=== PATIENT | male | born 1995 | race Caucasian/White ===

== ENCOUNTER 2025-08-16 21:02 | Inpatient (IN) ==
[2025-08-16] MEDS: ALBUT/IPRATROP 3MG/0.5MG NEB 3 ML VIAL NEB STA ×3 (21:25→23:55)
[2025-08-16] MEDS: MAGNESIUM SULFATE / D5W 1 GM/100 ML BAG IV STA (21:30)
--- NOTE | 2025-08-16 21:57 | Emergency Department Note ---
Impression & Plan Rhinovirus infection ED Provider Note CHIEF COMPLAINT: Shortness of breath HISTORY OF PRESENTING ILLNESS: Patient is a pleasant, 30-year-old male who arrives to the emergency department with his significant other and child for evaluation of shortness of breath. He reports symptoms began last night. He states previous episode last year, where he had seasonal allergies, that developed into shortness of breath, with wheezing and respiratory difficulties. He states that this episode appears to be worse. He reports no past medical history of asthma. He reports he did have a recent sinus infection. He denies chest pain, abdominal pain, nausea or vomiting. He has tachycardia, with increased respiratory rate, and obvious respiratory distress. REVIEW OF SYSTEMS: See HPI for pertinent positives and pertinent negatives. ALLERGIES: See below MEDICATIONS: See below PAST MEDICAL HISTORY: See below PHYSICAL EXAM: VITALS: Vitals are noted on the nurse's note and reviewed by myself. Vital signs stable. GENERAL: 30-year-old male, in no acute distress, nondiaphoretic, well-developed well-nourished. SKIN: The skin was without rashes, erythema, edema, or bruising. HEAD: Normocephalic atraumatic. NOSE: Patent, turbinates without inflammation or discharge. No sinus tenderness. MOUTH: Mucous membranes moist. No tonsillar hypertrophy. Pharynx without erythema or exudate. Uvula midline. Airway patent. Tongue does not deviate. NECK: Supple without nuchal rigidity. No lymphadenopathy. No JVD. HEART: Tachycardia with regular rhythm, without murmurs gallops or rubs. LUNGS: Diminished throughout, with expiratory wheezing. MUSCULOSKELETAL: No muscle atrophy, erythema, or edema noted. Normal gait. Strength 5/5 throughout. NEURO: Patient was alert and oriented to person place and time. No focal neurological deficits. DIFFERENTIAL DIAGNOSIS: Reactive airway disease, pneumonia, pneumothorax, COPD, CHF, infections, cardiac ischemia, pulmonary embolism, musculoskeletal, gastrointestinal, as well as other pathologies. ED COURSE AND MEDICAL DECISION MAKING: HISTORY FROM INDEPENDENT HISTORIAN: Significant other at bedside serving as secondary historian. MEDICATIONS GIVEN: DuoNeb treatment x 4, magnesium 1 g IV, methylprednisolone 80 mg IV MONITOR: Continuous cardiac cath lab radiology technologist: Order was placed for continuous cardiac cath lab radiology technologist. Patient was placed on the cardiac cath lab radiology technologist and continuous pulse ox. Patient was noted to be in normal sinus rhythm at an initial rate of 137 bpm per my interpretation. EKG: EKG was interpreted by myself as sinus tachycardia at a rate of 134 bpm, no ST elevation or depression. No previous for comparison. INTERPRETATION OF LABS: I interpreted the labs with full lab results as below in the lab section of this note. Pertinent lab results discussed in the MDM section below. INTERPRETATION OF IMAGING: Imaging studies were interpreted by myself and read by radiology as per the imaging section of this note. MDM SUMMARY: The patient is a pleasant, 30-year-old male who arrives to the emergency department for evaluation of the above-stated complaint. Patient arrived during time of high acuity and high-volume. Nursing staff placed the patient in room, when they noticed the patient was in distress. Saline lock was established, lab work was obtained. IV steroids, magnesium, and DuoNeb treatment were immediately provided. Upon my evaluation the patient had just received medication. Patient had diminished lung sounds, with expiratory wheezing diffusely. He was persistently tachycardic, with tachypnea. Lab work was obtained which shows leukocytosis 20.71, no anemia. Coags within normal limits. CMP is unremarkable. Magnesium 1.8. Upper upper respiratory viral panel positive for rhinovirus. Despite repeat DuoNeb treatments, the patient did not have significant improvement in symptoms. He then began to require supplemental oxygen via nasal cannula. I spoke with the patient at bedside, he was agreeable to admission. The patient was admitted to the [facility] hospitalist group, Dr. Bustos. Please refer to his documentation for further patient workup and care. DIAGNOSIS: Rhinovirus infection The chart was completed utilizing [employer] Speech voice recognition software. Grammatical errors, random word insertions, pronoun errors, and incomplete sentences are an occasional consequence of this system due to software limitations, ambient noise, and hardware issues. Any formal questions or concerns about the content, text, or information contained within the body of this dictation should be directly addressed to the provider for clarification. Past Med/Surg History Problem List (Updated 08/21/25 @ 02:34 by RENE Queen) Rhinovirus infection (Acute) Seasonal allergies Tobacco use Asthma exacerbation Medical History No significant medical problems Social History Smoking Status: Current every day smoker Tobacco Type: Cigarettes Cigarettes Per Day: 1 pack/day; Hx Alcohol Use: Yes Alcohol type: hard liquor Hx Substance Use: No Preferred Language: Wolof Communication Ability: Effective Hoop Maker Helper Machine Required: No Beliefs That Will Affect Care: None Current Living Situation: Significant Other Current Living Situation Comment: [place] Feels Safe at Home: Yes Assistive Devices: None Allergies Allergies Allergy/AdvReac Type Severity Reaction Status Date / Time No Known Allergies Allergy Unverified 08/16/25 23:50 Home Meds Previous Rx's Medication Instructions Recorded albuterol sulfate 90 mcg/actuation 1 inh inhalation Q6H PRN shortness 08/20/25 aerosol inhaler of breath or wheezing #6.7 grams budesonide-formoterol HFA 160 2 inh inhalation BID #10.2 grams 08/20/25 mcg-4.5 mcg/actuation aerosol inhaler (Symbicort) montelukast 10 mg tablet 10 mg PO DAILY #30 tabs 08/20/25 (Singulair) prednisone 20 mg tablet 20 mg PO DAILY 5 days #5 tabs 08/20/25 Results & Data (ED) Vital Signs Vital Signs - 24 hr 08/16/25 21:09 08/16/25 21:30 Temperature 36.6 C Temperature Source Temporal Artery Scan Pulse Rate 137 H Pulse Rhythm Regular Pulse Strength Normal Respiratory Rate 24 Respiratory Effort / Characteristics Spontaneous Pursed Lip Respiratory Depth Shallow Respiratory Pattern Regular Blood Pressure 139/88 Blood Pressure Mean 105 Blood Pressure Position Sitting Pulse Oximetry 94 92 Oxygen Delivery Method Room Air Room Air Sepsis Recent Fever Within 48 Hours No Sepsis New/Unexplained Change in Mental Status No Sepsis Action Taken by Nursing No Action Required Laboratory Data 08/19/25 06:29 08/19/25 06:29 Lab Results 08/16/25 08/16/25 Range/Units 21:26 21:30 WBC 20.71 H (4.8-10.8) K/ul RBC 5.15 (4.70-6.10) M/uL Hgb 16.9 (14.0-18.0) g/dl Hct 47.4 (42.0-52.0) % MCV 92.0 (80.0-100.0) fL MCH 32.8 (25.0-34.0) pg MCHC 35.7 (32.0-36.0) g/dL RDW Std Deviation 43.0 (36.4-46.3) fL RDW Coeff of Taya 12.7 (11.5-14.5) % Plt Count 282 (130-400) K/uL MPV 9.9 (9.4-12.4) fL Immature Gran % (Auto) 0.4 % Neut % (Auto) 87.0 % Lymph % (Auto) 4.4 % [place] % (Auto) 7.6 % Eos % (Auto) 0.3 % Baso % (Auto) 0.3 % Neut # (Auto) 18.02 H (1.40-6.50) K/uL Lymph # (Auto) 0.91 L (1.20-3.40) K/uL [place] # (Auto) 1.58 H (0.11-0.59) K/uL Eos # (Auto) 0.06 (0.00-0.50) K/uL Baso # (Auto) 0.06 (0.00-0.20) K/uL Immature Gran # (Auto) 0.08 (0.01-0.20) K/uL PT 10.7 (9.0-12.0) Seconds INR 1.0 (0.9-1.1) APTT 30 (21-31) Seconds PTT Ratio 1.1 Sodium 133 L (136-145) mmol/L Potassium 3.8 (3.5-5.1) mmol/L Chloride 100 (98-107) mmol/L Carbon Dioxide 23 (21-32) mmol/L Anion Gap 10 (3-11) BUN 10 (6-23) mg/dl Creatinine 1.02 (0.6-1.4) mg/dl Est Cr Clr Drug Dosing 104.9 ml/min eGFR 100.77 BUN/Creatinine Ratio 9.8 L (10-20) Glucose 126 H (70-99(Fasting)) mg/dl Calcium 10.1 (8.6-10.3) mg/dl Magnesium 1.8 (1.7-2.4) mg/dl Total Bilirubin 1.9 H (0.2-1.0) mg/dl AST 30 (13-39) U/L ALT 53 H (7-52) U/L Alkaline Phosphatase 102 (34-104) U/L Total Protein 8.2 (6.0-8.3) gm/dl Albumin 4.7 (3.4-5.0) gm/dl Globulin 3.5 (2.5-4.0) gm/dl Albumin/Globulin Ratio 1.3 (0.9-2) Adenovirus (PCR) Not Detected (NotDetected) B. pertussis DNA (PCR) Not Detected (NotDetected) B.parapertussis DNA PCR Not Detected (NotDetected) C. pneumoniae DNA (PCR) Not Detected (NotDetected) Coronavirus OC43 (PCR) Not Detected (NotDetected) Coronavirus HKU1 (PCR) Not Detected (NotDetected) Coronavirus 229E (PCR) Not Detected (NotDetected) SARS-CoV-2 (PCR) Not Detected (NotDetected) Coronavirus NL63 (PCR) Not Detected (NotDetected) Human Metapneumovir PCR Not Detected (NotDetected) Influenza Type A (PCR) Not Detected (NotDetected) Influenza Type B (PCR) Not Detected (NotDetected) M. pneumoniae (PCR) Not Detected (NotDetected) Parainfluenza 1 (PCR) Not Detected (NotDetected) Parainfluenza 2 (PCR) Not Detected (NotDetected) Parainfluenza 3 (PCR) Not Detected (NotDetected) Parainfluenza 4 (PCR) Not Detected (NotDetected) RSV (PCR) Not Detected (NotDetected) Entero/Rhino (PCR) DETECTED A (NotDetected) Administered Medications Discontinued Medications Albuterol (Albut/Ipratrop 3mg/0.5mg Neb 3 Ml Vial) 3 ml NEB NOW STA; Protocol Stop: 08/16/25 21:22 Last Admin: 08/16/25 21:25 Dose: 3 ml Documented By: LCD Albuterol (Albut/Ipratrop 3mg/0.5mg Neb 3 Ml Vial) 3 ml NEB NOW STA; Protocol Stop: 08/16/25 22:16 Last Admin: 08/16/25 22:22 Dose: 3 ml Documented By: LCD Albuterol (Albut/Ipratrop 3mg/0.5mg Neb 3 Ml Vial) 3 ml NEB NOW STA; Protocol Stop: 08/16/25 23:15 Last Admin: 08/16/25 23:55 Dose: 3 ml Documented By: DANUTA Azithromycin (Azithromycin 250 Mg Tab) 500 mg PO NOW ONE Stop: 08/17/25 01:28 Last Admin: 08/17/25 01:43 Dose: 500 mg Documented By: DANUTA Azithromycin (Azithromycin 250 Mg Tab) 250 mg PO HS [facility] Stop: 08/22/25 20:59 Last Admin: 08/19/25 20:17 Dose: 250 mg Documented By: Admin: 08/18/25 20:26 Dose: 250 mg Documented By: Admin: 08/17/25 20:29 Dose: 250 mg Documented By: BA Benzonatate (Benzonatate 100 Mg Capsule) 100 mg PO NOW ONE Stop: 08/17/25 01:32 Last Admin: 08/17/25 01:43 Dose: 100 mg Documented By: DANUTA Benzonatate (Benzonatate 100 Mg Capsule) 100 mg PO TID [facility] Stop: 09/16/25 08:59 Last Admin: 08/20/25 07:57 Dose: 100 mg Documented By: Admin: 08/19/25 20:15 Dose: 100 mg Documented By: Admin: 08/19/25 15:19 Dose: 100 mg Documented By: Admin: 08/19/25 09:14 Dose: 100 mg Documented By: Admin: 08/18/25 20:26 Dose: 100 mg Documented By: Admin: 08/18/25 14:27 Dose: 100 mg Documented By: Admin: 08/18/25 07:58 Dose: 100 mg Documented By: Admin: 08/17/25 20:29 Dose: 100 mg Documented By: Admin: 08/17/25 14:16 Dose: 100 mg Documented By: Admin: 08/17/25 07:22 Dose: 100 mg Documented By: WANDA Calcium Carbonate (Calcium Carbonate 500 Mg Chewable Tab) 500 mg PO TID PRN PRN Reason: Indigestion Stop: 09/16/25 12:00 Last Admin: 08/18/25 23:28 Dose: 500 mg Documented By: Admin: 08/17/25 12:44 Dose: 500 mg Documented By: WANDA Enoxaparin Sodium (Enoxaparin Inj 40 Mg/0.4 Ml Syr) 40 mg SQ Q24H [facility] Stop: 09/16/25 07:59 Last Admin: 08/20/25 07:59 Dose: Not Given Documented By: Admin: 08/19/25 09:13 Dose: Not Given Documented By: Admin: 08/18/25 07:53 Dose: Not Given Documented By: Admin: 08/17/25 07:21 Dose: Not Given Documented By: WANDA Fluticasone Propionate (Fluticasone Propionate Na Spr 16 Gm Btl) 2 sprays NA DAILY LELO Stop: 09/17/25 13:29 Last Admin: 08/20/25 07:58 Dose: 2 sprays Documented By: Admin: 08/19/25 09:14 Dose: 2 sprays Documented By: Admin: 08/18/25 14:27 Dose: 2 sprays Documented By: DECLAN Fluticasone/Vilanterol (Fluticasone/Vilanterol 100/25mcg 14 Puffs/Inhaler) 1 puffs INH DAILY LELO; Protocol Stop: 09/17/25 08:59 Last Admin: 08/20/25 07:58 Dose: 1 puffs Documented By: Admin: 08/19/25 09:13 Dose: 1 puffs Documented By: Admin: 08/18/25 07:57 Dose: 1 puffs Documented By: WANDA Guaifenesin/Dextromethorphan (Guaifenesin/Dextrom Syrup 100mg/10mg 5ml Udc) 5 ml PO Q6H PRN PRN Reason: Cough Stop: 09/16/25 03:42 Last Admin: 08/18/25 07:58 Dose: 5 ml Documented By: WANDA Hydrocodone Bit/Homatropine Methylb (Hydrocodone/Homatropine Syrup 5mg/1.5mg 5ml Udp) 5 ml PO TID PRN PRN Reason: Cough Stop: 09/01/25 08:53 Last Admin: 08/19/25 20:15 Dose: 5 ml Documented By: Admin: 08/19/25 09:14 Dose: 5 ml Documented By: Admin: 08/18/25 23:28 Dose: 5 ml Documented By: Admin: 08/18/25 16:13 Dose: 5 ml Documented By: DECLAN Magnesium Sulfate/Dextrose (Magnesium Sulfate / D5w) 1 gm in 100 mls @ 100 mls/hr IV NOW STA Stop: 08/16/25 22:21 Last Infusion: 08/16/25 23:51 Dose: Infused Documented By: Admin: 08/16/25 21:30 Dose: 100 mls/hr Documented By: KYLEIGH Methylprednisolone 40 mg/ (Syringe) 0.64 mls @ 1.5 mls/min IV TID LELO Stop: 09/16/25 08:59 Last Admin: 08/17/25 20:28 Dose: 1.5 mls/min Documented By: Admin: 08/17/25 14:12 Dose: 1.5 mls/min Documented By: Admin: 08/17/25 07:22 Dose: 1.5 mls/min Documented By: WANDA Ipratropium [place] (Ipratropium [place] Nasal [place] 0.03% 30 Ml) 2 sprays KRISTIAN BID LELO Stop: 09/17/25 20:59 Last Admin: 08/20/25 07:58 Dose: 2 sprays Documented By: Admin: 08/19/25 20:16 Dose: 2 sprays Documented By: Admin: 08/19/25 09:14 Dose: 2 sprays Documented By: Admin: 08/18/25 20:31 Dose: 2 sprays Documented By: BA Levalbuterol HCl (Levalbuterol 1.25 Mg/3 Ml Neb) 1.25 mg NEB QIDR LELO Stop: 09/16/25 06:59 Last Admin: 08/20/25 10:08 Dose: 1.25 mg Documented By: Admin: 08/20/25 07:10 Dose: 1.25 mg Documented By: [id number] Admin: 08/19/25 19:51 Dose: 1.25 mg Documented By: Admin: 08/19/25 15:28 Dose: 1.25 mg Documented By: Admin: 08/19/25 11:25 Dose: 1.25 mg Documented By: EM(2) Admin: 08/19/25 07:08 Dose: 1.25 mg Documented By: EMNa(2) Admin: 08/18/25 19:44 Dose: 1.25 mg Documented By: Admin: 08/18/25 15:56 Dose: 1.25 mg Documented By: Admin: 08/18/25 11:29 Dose: 1.25 mg Documented By: Admin: 08/18/25 07:11 Dose: 1.25 mg Documented By: EM(2) Admin: 08/17/25 20:22 Dose: 1.25 mg Documented By: LGBill Admin: 08/17/25 15:20 Dose: 1.25 mg Documented By: [id number] Admin: 08/17/25 10:56 Dose: 1.25 mg Documented By: [id number] Admin: 08/17/25 08:35 Dose: 1.25 mg Documented By: [id number] Methylprednisolone (Methylprednisolone 125 Mg/2 Ml Vial) 80 mg IV NOW STA Stop: 08/16/25 21:22 Last Admin: 08/16/25 21:26 Dose: 80 mg Documented By: KYLEIGH Prednisone (Prednisone 20 Mg Tab) 40 mg PO DAILY LELO Stop: 09/17/25 08:59 Last Admin: 08/20/25 07:57 Dose: 40 mg Documented By: Admin: 08/19/25 09:14 Dose: 40 mg Documented By: Admin: 08/18/25 07:58 Dose: 40 mg Documented By: WANDA Discharge Plan Visit Data Chief Complaint: Shortness of Breath/Dyspnea Stated Complaint: DIFFICULTY BREATHING, SINUS INFECTION ED Provider: Corey Anderson ED Midlevel Provider: Lucia Urias Discharge Problem: Rhinovirus infection Patient Disposition: Admitted As Inpatient Condition: Fair Discharge Instructions Interventions: ED Discharge Assessment Last Done: 08/17/25 03:01
[2025-08-16 22:01] LABS: Alanine Aminotransferase 53.0 U/L (7-52); Albumin Globulin Ratio 1.3 (0.9-2); Albumin Level 4.7 gm/dl (3.4-5.0); Alkaline Phosphatase 102.0 U/L (34-104); Anion Gap 10.0 (3-11); Bilirubin,Total 1.9 mg/dl (0.2-1.0); Blood Urea Nitrogen 10.0 mg/dl (6-23); Calcium 10.1 mg/dl (8.6-10.3); Carbon Dioxide 23.0 mmol/L (21-32); Chloride 100.0 mmol/L (98-107); Creatinine Clr Calc Pharmacy 104.9 ml/min; Globulin 3.5 gm/dl (2.5-4.0); Glucose 126.0 mg/dl (70-99(Fasting)); Magnesium 1.8 mg/dl (1.7-2.4); Potassium 3.8 mmol/L (3.5-5.1); Sodium 133.0 mmol/L (136-145); Total Protein 8.2 gm/dl (6.0-8.3)
--- NOTE | 2025-08-16 22:05 | XRay Report ---
Exam(s): XR CXR 1 VIEW EXAM: XR Chest, 1 View CLINICAL HISTORY: Reason for exam: Dyspnea. TECHNIQUE: Frontal view of the chest. COMPARISON: No relevant prior studies available. FINDINGS: Lungs: No consolidation. No overt edema. Pleural space: No pleural effusion. No pneumothorax. Heart: Unremarkable. No cardiomegaly. IMPRESSION: No acute cardiopulmonary abnormality. Electronically signed by: David Grijalva MD 08/16/25 22:04 PM
[2025-08-16 22:11] LABS: INR 1.0 (0.9-1.1); Partial Thromboplastin Time 30 Seconds (21-31); Prothrombin Time 10.7 Seconds (9.0-12.0)
[2025-08-16 22:18] LABS: Hematocrit (blood only) 47.4 % (42.0-52.0); Hemoglobin 16.9 g/dl (14.0-18.0); Immature Granulocytes # (auto) 0.08 K/uL (0.01-0.20); Immature Granulocytes % (auto) 0.4 %; Mean Corpuscular Hemoglobin 32.8 pg (25.0-34.0); Mean Corpuscular Volume 92.0 fL (80.0-100.0); Platelet Count 282 K/uL (130-400); RDW Standard Deviation 43.0 fL (36.4-46.3); Red Blood Count 5.15 M/uL (4.70-6.10); White Blood Count 20.71 K/ul (4.8-10.8)
[2025-08-16 22:39] LABS: Chlamydia pneumoniae PCR Not Detected (NotDetected); Coronavirus 229E PCR Not Detected (NotDetected); Coronavirus CoV-2 (COVID19)PCR Not Detected (NotDetected); Coronavirus HKU1 PCR Not Detected (NotDetected); Coronavirus NL63 PCR Not Detected (NotDetected); Coronavirus OC43PCR Not Detected (NotDetected); Human Metapneumovirus PCR Not Detected (NotDetected); Parainfluenza Virus 1 PCR Not Detected (NotDetected); Parainfluenza Virus 2 PCR Not Detected (NotDetected); Parainfluenza Virus 3 PCR Not Detected (NotDetected); Parainfluenza Virus 4 PCR Not Detected (NotDetected); Respiratory Syncytial VirusPCR Not Detected (NotDetected); Rhinovirus/Enterovirus PCR DETECTED (NotDetected)
[2025-08-17] MEDS: BENZONATATE 100 MG CAPSULE PO ONE (01:43)
[2025-08-17] MEDS: AZITHROMYCIN 250 MG TAB PO ONE (01:43)
--- NOTE | 2025-08-17 02:12 | History & Physical Report ---
Date of Service August 17, 2025 Assessment & Plan (1) Asthma exacerbation: Plan: 30-year-old male with ongoing tobacco abuse and no other significant medical history presents with shortness of breath and cough. Patient says since yesterday night coughing a lot and bringing some phlegm and feeling short of breath which prompted him to come to the ER today. He is having some congestion going on for last couple of days. Has some runny nose. Denies any sore throat. Has headache. Congestion in the face. Vision is okay. No earaches. No sore throat. Denies any chest pain. With a lot of coughing had episode of nausea and vomiting. Denies abdominal pain. Normal bowel and bladder movements. Micturating okay. Patient says had similar episode last year but this time it is worse. States smokes 1 pack daily since last 15 years. Says drinks 1 bottle of rum on the weekends and states does not drink on the weekdays. Possible asthma exasperation Possible acute bronchitis Ongoing tobacco abuse Chest x-ray no acute findings Has leukocytosis. Will follow repeat labs Respiratory BioFire positive for enterorhinovirus On droplet precautions Azithromycin empirically IV Solu-Medrol 40 mg 3 times daily, Xopenex [id number] and as needed Pulmonary consult in am Close monitor Tobacco abuse Counseling Alcohol abuse Drinks only on the weekends Will monitor DVT prophylaxis Lovenox Disposition Telemetry Full code. History of Present Illness Chief Complaint: Shortness of breath and cough Primary Care Provider: NO PCP 30-year-old male with ongoing tobacco abuse and no other significant medical history presents with shortness of breath and cough. Patient says since yesterday night coughing a lot and bringing some phlegm and feeling short of breath which prompted him to come to the ER today. He is having some congestion going on for last couple of days. Has some runny nose. Denies any sore throat. Has headache. Congestion in the face. Vision is okay. No earaches. No sore throat. Denies any chest pain. With a lot of coughing had episode of nausea and vomiting. Denies abdominal pain. Normal bowel and bladder movements. Micturating okay. Patient says had similar episode last year but this time it is worse. States smokes 1 pack daily since last 15 years. Says drinks 1 bottle of rum on the weekends and states does not drink on the weekdays. Past medical history. As mentioned above. Past surgical history denies any surgeries. Social history. Smoking 1 pack of cigarettes daily for last 15 years. Drinks 1 bottle of rum on the weekends. No drinking on the weekdays. Denies any drug use. Family history. Denies any family history. Allergies Allergy/AdvReac Type Severity Reaction Status Date / Time No Known Allergies Allergy Unverified 08/16/25 23:50 Home Medications Medication Instructions Recorded Confirmed Type No Known Home Medications 08/16/25 08/16/25 History Past Med/Surg History Problem List (Updated 08/17/25 @ 02:17 by Tomasz Bustos MD) Asthma exacerbation Medical History No significant medical problems Social History Smoking Status: Current every day smoker Tobacco Type: Cigarettes Cigarettes Per Day: 1 pack/day; Hx Alcohol Use: Yes Alcohol type: hard liquor Hx Substance Use: No Preferred Language: [place] Leonean Communication Ability: Effective Appliquer Required: No Beliefs That Will Affect Care: None Current Living Situation: Significant Other Current Living Situation Comment: [place] Other Information That Helps Us Care for You: No Feels Safe at Home: Yes Safety Concerns: Feels Safe At This Time Assistive Devices: Glasses Review of Systems Review of Systems: All systems reviewed & are unremarkable except as noted in HPI & below Physical Exam Physical Exam: General- Not in acute distress Head- atraumatic Eyes- PERRL. ENT- oropharynx clear Neck- supple, no JVD. Lungs- clear to auscultation b/l wheezing present Heart- regular rhythm;tachycardia no murmur, no gallop. Abdomen- normal bowel sounds, soft, nontender, no distension Extremities- no pretibial edema, no erythema seen Neuro- alert, oriented PERRL, no facial palsy; no dysarthria; moves extremities Results & Data Results & Data Vital Signs (Past 12 Hours) Vital Signs Temp Pulse Pulse Resp BP BP Pulse Ox 08/17/25 01:17 109 H 08/17/25 00:00 111 H 18 126/94 95 08/16/25 22:30 117 H 18 126/94 95 08/16/25 21:30 92 08/16/25 21:22 127 H 08/16/25 21:09 36.6 C 137 H 24 139/88 94 O2 Del Method 08/17/25 01:17 08/17/25 00:00 Room Air 08/16/25 22:30 Room Air 08/16/25 21:30 Room Air 08/16/25 21:22 08/16/25 21:09 Room Air Diagnostic Findings Laboratory Results WBC 20.71 K/ul (4.8-10.8) H 08/16/25 21: RBC 5.15 M/uL (4.70-6.10) 08/16/25 21: Hgb 16.9 g/dl (14.0-18.0) 08/16/25 21: Hct 47.4 % (42.0-52.0) 08/16/25 21: MCV 92.0 fL (80.0-100.0) 08/16/25 21: MCH 32.8 pg (25.0-34.0) 08/16/25 21: MCHC 35.7 g/dL (32.0-36.0) 08/16/25 21: RDW Std Deviation 43.0 fL (36.4-46.3) 08/16/25 21: RDW Coeff of Taya 12.7 % (11.5-14.5) 08/16/25 21: Plt Count 282 K/uL (130-400) 08/16/25 21: MPV 9.9 fL (9.4-12.4) 08/16/25 21: Immature Gran % (Auto) 0.4 % 08/16/25: Neut % (Auto) 87.0 % 08/16/25 21: Lymph % (Auto) 4.4 % 08/16/25: [place] % (Auto) 7.6 % 08/16/25: Eos % (Auto) 0.3 % 08/16/25 21: Baso % (Auto) 0.3 % 08/16/25: Neut # (Auto) 18.02 K/uL (1.40-6.50) H 08/16/25 21: Lymph # (Auto) 0.91 K/uL (1.20-3.40) L 08/16/25 21: [place] # (Auto) 1.58 K/uL (0.11-0.59) H 08/16/25 21: Eos # (Auto) 0.06 K/uL (0.00-0.50) 08/16/25 21: Baso # (Auto) 0.06 K/uL (0.00-0.20) 08/16/25: Immature Gran # (Auto) 0.08 K/uL (0.01-0.20) 08/16/25 21: PT 10.7 Seconds (9.0-12.0) 08/16/25: INR 1.0 (0.9-1.1) 08/16/25: APTT 30 Seconds (21-31) 08/16/25: PTT Ratio 1.1 08/16/25 21: Sodium 133 mmol/L (136-145) L 08/16/25 21: Potassium 3.8 mmol/L (3.5-5.1) 08/16/25: Chloride 100 mmol/L (98-107) 08/16/25 21: Carbon Dioxide 23 mmol/L (21-32) 08/16/25: Anion Gap 10 (3-11) 08/16/25: BUN 10 mg/dl (6-23) 08/16/25: Creatinine 1.02 mg/dl (0.6-1.4) 08/16/25: Est Cr Clr Drug Dosing 104.9 ml/min 08/16/25 21: eGFR 100.77 08/16/25 21: BUN/Creatinine Ratio 9.8 (10-20) L 08/16/25: Glucose 126 mg/dl (70-99(Fasting)) H 08/16/25: Calcium 10.1 mg/dl (8.6-10.3) 08/16/25: Magnesium 1.8 mg/dl (1.7-2.4) 08/16/25: Total Bilirubin 1.9 mg/dl (0.2-1.0) H 08/16/25 21: AST 30 U/L (13-39) 08/16/25 21: ALT 53 U/L (7-52) H 08/16/25 21: Alkaline Phosphatase 102 U/L (34-104) 08/16/25: Total Protein 8.2 gm/dl (6.0-8.3) 08/16/25: Albumin 4.7 gm/dl (3.4-5.0) 08/16/25: Globulin 3.5 gm/dl (2.5-4.0) 08/16/25: Albumin/Globulin Ratio 1.3 (0.9-2) 08/16/25 21: Adenovirus (PCR) Not Detected (NotDetected) 08/16/25 21:30 B. pertussis DNA (PCR) Not Detected (NotDetected) 08/16/25 21: B.parapertussis DNA PCR Not Detected (NotDetected) 08/16/25 21:30 C. pneumoniae DNA (PCR) Not Detected (NotDetected) 08/16/25 21: Coronavirus OC43 (PCR) Not Detected (NotDetected) 08/16/25 21:30 Coronavirus HKU1 (PCR) Not Detected (NotDetected) 08/16/25 21: Coronavirus 229E (PCR) Not Detected (NotDetected) 08/16/25 21: SARS-CoV-2 (PCR) Not Detected (NotDetected) 08/16/25 21:30 Coronavirus NL63 (PCR) Not Detected (NotDetected) 08/16/25 21: Human Metapneumovir PCR Not Detected (NotDetected) 08/16/25 21:30 Influenza Type A (PCR) Not Detected (NotDetected) 08/16/25 21:30 Influenza Type B (PCR) Not Detected (NotDetected) 08/16/25 21:30 M. pneumoniae (PCR) Not Detected (NotDetected) 08/16/25 21: Parainfluenza 1 (PCR) Not Detected (NotDetected) 08/16/25 21:30 Parainfluenza 2 (PCR) Not Detected (NotDetected) 08/16/25 21:30 Parainfluenza 3 (PCR) Not Detected (NotDetected) 08/16/25 21:30 Parainfluenza 4 (PCR) Not Detected (NotDetected) 08/16/25 21:30 RSV (PCR) Not Detected (NotDetected) 08/16/25 21:30 Entero/Rhino (PCR) DETECTED (NotDetected) A 08/16/25 21:30 Impressions Chest X-Ray 08/16/25 21:21 Exam(s): XR CXR 1 VIEW EXAM: XR Chest, 1 View CLINICAL HISTORY: Reason for exam: Dyspnea. TECHNIQUE: Frontal view of the chest. COMPARISON: No relevant prior studies available. FINDINGS: Lungs: No consolidation. No overt edema. Pleural space: No pleural effusion. No pneumothorax. Heart: Unremarkable. No cardiomegaly. IMPRESSION: No acute cardiopulmonary abnormality. Electronically signed by: David Grijalva MD 08/16/25 22:04 PM ECG Additional Comments: ECG. Sinus tachycardia rate of 134. Possible left atrial enlargement. QTc 421 Code Status & VTE Plan VTE Prophylaxis Plan VTE Prophylaxis will be ordered: Yes
[2025-08-17] MEDS ORDERED: ALBUT/IPRATROP 3MG/0.5MG NEB 3 ML VIAL NEB PRN (03:43)
[2025-08-17] MEDS ORDERED: ACETAMINOPHEN 325 MG TAB PO PRN (03:43)
[2025-08-17] MEDS ORDERED: POLYETHYLENE (MIRALAX) 17 GM PACK PO PRN (03:43)
[2025-08-17] MEDS ORDERED: LEVALBUTEROL 1.25 MG/3 ML NEB NEB PRN (05:41)
[2025-08-17] MEDS ORDERED: ALBUT/IPRATROP 3MG/0.5MG NEB 3 ML VIAL NEB SCH (07:00)
[2025-08-17 07:07] LABS: Hematocrit (blood only) 44.9 % (42.0-52.0); Hemoglobin 15.6 g/dl (14.0-18.0); Mean Corpuscular Hemoglobin 32.6 pg (25.0-34.0); Mean Corpuscular Volume 93.9 fL (80.0-100.0); Platelet Count 258 K/uL (130-400); RDW Standard Deviation 44.1 fL (36.4-46.3); Red Blood Count 4.78 M/uL (4.70-6.10); White Blood Count 15.34 K/ul (4.8-10.8)
[2025-08-17] MEDS: ENOXAPARIN INJ 40 MG/0.4 ML SYR SQ SCH (07:21)
[2025-08-17] MEDS: BENZONATATE 100 MG CAPSULE PO SCH (07:22)
[2025-08-17 07:27] LABS: Anion Gap 10.0 (3-11); Blood Urea Nitrogen 12.0 mg/dl (6-23); Calcium 9.8 mg/dl (8.6-10.3); Carbon Dioxide 26.0 mmol/L (21-32); Chloride 100.0 mmol/L (98-107); Creatinine Clr Calc Pharmacy 96.4 ml/min; Glucose 175.0 mg/dl (70-99(Fasting)); Magnesium 2.4 mg/dl (1.7-2.4); Potassium 3.9 mmol/L (3.5-5.1); Sodium 136.0 mmol/L (136-145)
[2025-08-17 07:32] LABS: Immature Granulocytes # (auto) 0.07 K/uL (0.01-0.20); Immature Granulocytes % (auto) 0.5 %; RBC Morphology Unremarkable
[2025-08-17] MEDS: LEVALBUTEROL 1.25 MG/3 ML NEB NEB SCH (08:35)
[2025-08-17] MEDS: CALCIUM CARBONATE 500 MG CHEWABLE TAB PO PRN (12:44)
--- NOTE | 2025-08-17 15:39 | Electrocardiogram Report ---
Test Reason : Blood Pressure : */* mmHG Vent. Rate : 134 BPM Atrial Rate : 134 BPM P-R Int : 152 ms QRS Dur : 90 ms QT Int : 282 ms P-R-T Axes : 78 87 58 degrees QTcB Int : 421 ms Poor data quality, interpretation may be adversely affected Sinus tachycardia Possible Left atrial enlargement Borderline ECG No previous ECGs available Confirmed by Nabor Zapata ([id number]) on 08/17/2025 3:39:10 PM Referred By: REFERRED SELF Confirmed By: Nabor Zapata
--- NOTE | 2025-08-17 18:01 | Pulmonary Consultation ---
Date of Consultation August 17, 2025 Assessment & Plan (1) Asthma exacerbation: (2) Tobacco use: (3) Seasonal allergies: (4) Rhinovirus infection: Plan Patient appears to be an asthma exacerbation. No personal history of asthma however. No new exposures, was exposed to his child who had a viral illness recently. No significant eosinophilia on his admission CBC. Has never had PFTs or other investigations performed. I agree with steroids, can continue IV steroids today. Can consider transitioning to p.o. prednisone tomorrow. Continue bronchodilators. I will obtain an IgE level, will order RAST allergy panel, will get alpha-1 antitrypsin. Will initiate montelukast. Upon discharge the patient will need ICS/LABA according to Lola guidelines. He will need to have his sinus congestion and seasonal allergies well-controlled with antihistamines, montelukast and nasal sprays. He will need to follow-up with pulmonary and have full PFTs performed in the outpatient setting once his acute illness has resolved. Thank you for this consult. I will follow along with you. History of Present Illness Reason for Consultation: Asthma exacerbation Requesting Physician: Steven Gaitan MD Attending Physician: Steven Gaitan MD History of Present Illness Patient is a 30-year-old male with a past medical history of tobacco use (cigarettes, 1 pack/day), history of seasonal allergies and 1 episode of bronchitis/walking pneumonia 1 year ago. The patient has known allergies to cats and at times will get severe seasonal allergies especially if he is mowing grass. The patient presented to the emergency department on 08/16/2025 with shortness of breath. The patient started having some congestion and facial pressure on Sunday night, on Sunday he developed shortness of breath that progressed significantly. He tried multiple [id number] allergy and cold medications without relief. Did not have any home inhaler so was not able to use these. On presentation to the emergency department the patient was found to be in severe bronchospasm. He was started on bronchodilators and steroids with significant improvement. Viral PCR was positive for rhinovirus. CBC was significant for leukocytosis, chemistry was significant for mild hyponatremia. Imaging of the chest with x-ray showed clear lungs without evidence of an acute cardiopulmonary process. Pulmonary has been consulted for asthma exacerbation. When I examined the patient today he is resting on nasal cannula. He says that his breathing is improved however not returned to baseline. It still feels as though it is hard to take a deep breath and he is having an intermittent cough and continues to have sinus congestion. The patient has 3 children, he says that his youngest child was sick recently and he believes that he got this illness from them. He denies any history of as thma including childhood asthma or exercise-induced asthma. He does smoke, about 1 pack/day. No vaping or marijuana use. He does not have any inhalers at home. Has not been formally tested for allergies. He has not had any change in his cigarette brand or usage. No new pets in the home. Social history: Tobacco: 1 pack/day of cigarettes, has smoked for many years. Illicit substance use: Denies Living situation: Lives with his girlfriend of 12 years, they have 3 children, they have lived in the same home for about 2-1/2 years, is an older home and they have been remodeling it removing carpet and jaison and there is some dust and mold in the home. Pets: Has 3 dogs, 2 cats, he is allergic to cats but has not noticed too many symptoms recently with these. Work: Works as a electric truck operator. Family history: No family history of asthma. Allergies Allergy/AdvReac Type Severity Reaction Status Date / Time No Known Allergies Allergy Unverified 08/16/25 23:50 Home Medications Medication Instructions Recorded Confirmed Type No Known Home Medications 08/16/25 08/16/25 History Patient History Medical History No significant medical problems Social History Smoking Status: Current every day smoker Tobacco Type: Cigarettes Cigarettes Per Day: 1 pack/day; Hx Alcohol Use: Yes Alcohol type: hard liquor Hx Substance Use: No Preferred Language: Persian Communication Ability: Effective Net Lead Architect Required: No Beliefs That Will Affect Care: None Current Living Situation: Significant Other Current Living Situation Comment: [place] Other Information That Helps Us Care for You: No Feels Safe at Home: Yes Safety Concerns: Feels Safe At This Time Assistive Devices: None Review of Systems Review of Systems: Negative except as in HPI. Physical Exam Physical Exam: Physical examination: General: Well-appearing, well-nourished and not in acute distress. HEENT: Normocephalic, atraumatic. Extraocular movements intact. Sclera are nonicteric. No JVD appreciated. Sinus congestion. Skin: Warm and dry. No rashes appreciated. No jaundice appreciated. Cardiovascular: Heart is a regular rate and rhythm, no murmurs appreciated on my exam. No significant lower extremity edema. Lungs: On nasal cannula, mildly tachypneic, nonproductive cough, wheezing appreciated. Musculoskeletal: Normal muscle mass and tone. No gross joint deformity abnormalities. No effusions appreciated. Neurologic: Awake and alert, oriented. CN II through XII are grossly intact. Speech is fluent. Nonfocal exam. Psychiatric: Appropriate cooperative during my exam. Results & Data Results & Data Vital Signs (Past 12 Hours) Vital Signs Temp Pulse Pulse Resp BP Pulse Ox O2 Del Method 08/17/25 15:20 89 19 93 Nasal Cannula 08/17/25 15:13 36.7 C 111 H 19 125/71 93 Nasal Cannula 08/17/25 14:00 106 H 08/17/25 11:40 36.4 C L 118 H 22 130/74 94 Nasal Cannula 08/17/25 10:56 101 H 18 98 Nasal Cannula 08/17/25 08:37 111 H 19 97 Nasal Cannula 08/17/25 07:56 36.5 C 95 H 22 123/75 94 Nasal Cannula 08/17/25 07:50 94 H 08/17/25 07:50 Nasal Cannula O2 Flow Rate 08/17/25 15:20 2 08/17/25 15:13 2 08/17/25 14:00 08/17/25 11:40 4 08/17/25 10:56 3.5 08/17/25 08:37 3.5 08/17/25 07:56 4 08/17/25 07:50 08/17/25 07:50 4 Laboratory Results No significant peripheral eosinophilia on admission CBC. Diagnostic Findings Chest x-ray was reviewed, clear lung arenas. No consolidations, pneumothorax or evidence of hyperinflation. PG Care Time/CCT Total # of Minutes Spent Total Time Spent with Patient: Total time spent is greater than 50% in coordination of care (as documented) at patient's floor/unit and/or counseling patient: Coding Level of Care Code 20986 IN/OBS CONSULT LVL 3,45M Diagnoses Asthma exacerbation J45.901 Tobacco use Z72.0 Seasonal allergies J30.2 Rhinovirus infection B34.8
[2025-08-17] MEDS: AZITHROMYCIN 250 MG TAB PO SCH (20:29)
[2025-08-18] MEDS: FLUTICASONE/VILANTEROL 100/25MCG 14 PUFFS/INHALER INH SCH (07:57)
[2025-08-18] MEDS: predniSONE 20 MG TAB PO SCH (07:58)
[2025-08-18 08:04] LABS: Hematocrit (blood only) 46.2 % (42.0-52.0); Hemoglobin 16.4 g/dl (14.0-18.0); Mean Corpuscular Hemoglobin 34.7 pg (25.0-34.0); Mean Corpuscular Volume 97.7 fL (80.0-100.0); Platelet Count 268 K/uL (130-400); RDW Standard Deviation 46.1 fL (36.4-46.3); Red Blood Count 4.73 M/uL (4.70-6.10); White Blood Count 29.21 K/ul (4.8-10.8)
[2025-08-18 08:51] LABS: Anion Gap 12.0 (3-11); Blood Urea Nitrogen 18.0 mg/dl (6-23); Calcium 9.8 mg/dl (8.6-10.3); Carbon Dioxide 22.0 mmol/L (21-32); Chloride 102.0 mmol/L (98-107); Creatinine Clr Calc Pharmacy 103.9 ml/min; Glucose 166.0 mg/dl (70-99(Fasting)); Magnesium 2.4 mg/dl (1.7-2.4); Potassium 3.8 mmol/L (3.5-5.1); Sodium 136.0 mmol/L (136-145)
--- NOTE | 2025-08-18 08:57 | Hospitalist Progress Note ---
Date of Service August 18, 2025 Assessment & Plan (1) Asthma exacerbation: Plan: 30-year-old male with ongoing tobacco abuse and no other significant medical history presents with shortness of breath and cough. Patient says since yesterday night coughing a lot and bringing some phlegm and feeling short of breath which prompted him to come to the ER today. He is having some congestion going on for last couple of days. Has some runny nose. Denies any sore throat. Has headache. Congestion in the face. Vision is okay. No earaches. No sore throat. Denies any chest pain. With a lot of coughing had episode of nausea and vomiting. Denies abdominal pain. Normal bowel and bladder movements. Micturating okay. Patient says had similar episode last year but this time it is worse. States smokes 1 pack daily since last 15 years. Says drinks 1 bottle of rum on the weekends and states does not drink on the weekdays. Acute hypoxic resp. failure Possible asthma exasperation Possible acute bronchitis Ongoing tobacco abuse Chest x-ray no acute findings Has leukocytosis. Will follow repeat labs Respiratory BioFire positive for rhinovirus On droplet precautions Azithromycin empirically IV Solu-Medrol 40 mg 3 times daily, Xopenex [id number] and as needed Pulmonary consult in am Close monitor Per pulm. - Patient appears to be an asthma exacerbation. No personal history of asthma however. No significant eosinophilia on his admission CBC. Has never had PFTs or other investigations performed. transition to p.o. prednisone 40 mg. Still wheezing significantly. Continue bronchodilators and ICS. I will obtain an IgE level, will order RAST allergy panel, will get alpha-1 antitrypsin. Will initiate montelukast. Having a lot of congestion, likely related to seasonal allergies and rhinovirus. I will initiate Flonase and ipratropium nasal sprays. Upon discharge the patient will need ICS/LABA according to Lola guidelines. He will need to have his sinus congestion and seasonal allergies well-controlled with antihistamines, montelukast and nasal sprays. He will need to follow-up with pulmonary and have full PFTs performed in the outpatient setting once his acute illness has resolved. Tobacco abuse Counseling Alcohol abuse Drinks only on the weekends Will monitor DVT prophylaxis - Lovenox Disposition- Telemetry Full code. Admission and Anticipated Discharge Date Admission Date: August 17, 2025 Subjective Pt seen in follow up of acute hypox. resp. failure, poss. asthma , + Rhinovirus Sitting up in bed in NAD, continues to have a cough , could not sleep much because of coughing no fever, chills, chest pain on suppl. O2 Pt's mother present at the bedside Pulm. consulted and following Review of Systems Review of Systems: All systems reviewed & are unremarkable except as noted in Subjective Physical Exam Physical Exam: General- WD/WN M Not in acute distress Head- atraumatic Eyes- PERRL. Neck- supple, no JVD. Lungs- + b/l wheezing present Heart- regular rhythm;tachycardia no murmur Abdomen- normal bowel sounds, soft, nontender, no distension Extremities- no pretibial edema, no erythema seen Neuro- alert, oriented PERRL, no facial palsy; speech fluent, answers appropriately, moves extremities Results & Data Results & Data Vital Signs (Past 12 Hours) Vital Signs Temp Pulse Pulse Resp BP Pulse Ox Pulse Ox 08/18/25 08:00 80 08/18/25 08:00 08/18/25 08:00 36.5 C 124 H 20 121/73 90 08/18/25 07:13 101 H 16 94 08/18/25 03:43 94 08/18/25 03:15 36.5 C 93 H 22 119/78 94 08/17/25 23:02 36.6 C 100 H 22 129/74 93 O2 Del Method O2 Del Method O2 Flow Rate O2 Flow Rate 08/18/25 08:00 08/18/25 08:00 Nasal Cannula 2 08/18/25 08:00 Nasal Cannula 08/18/25 07:13 Nasal Cannula 2 08/18/25 03:43 Nasal Cannula 2 08/18/25 03:15 Nasal Cannula 2 08/17/25 23:02 Nasal Cannula 2 Laboratory Results 08/18/25 Range/Units 07:18 WBC 29.21 H (4.8-10.8) K/ul RBC 4.73 (4.70-6.10) M/uL Hgb 16.4 (14.0-18.0) g/dl Hct 46.2 (42.0-52.0) % MCV 97.7 (80.0-100.0) fL MCH 34.7 H (25.0-34.0) pg MCHC 35.5 (32.0-36.0) g/dL RDW Std Deviation 46.1 (36.4-46.3) fL RDW Coeff of Taya 12.9 (11.5-14.5) % Plt Count 268 (130-400) K/uL MPV 9.9 (9.4-12.4) fL Sodium 136 (136-145) mmol/L Potassium 3.8 (3.5-5.1) mmol/L Chloride 102 (98-107) mmol/L Carbon Dioxide 22 (21-32) mmol/L Anion Gap 12 H (3-11) BUN 18 (6-23) mg/dl Creatinine 1.03 (0.6-1.4) mg/dl Est Cr Clr Drug Dosing 103.9 ml/min eGFR 99.60 BUN/Creatinine Ratio 17.5 (10-20) Glucose 166 H (70-99(Fasting)) mg/dl Calcium 9.8 (8.6-10.3) mg/dl Phosphorus 2.7 (2.5-4.9) mg/dl Magnesium 2.4 (1.7-2.4) mg/dl [id number] Pending Alpha-1-AT Phenotype Pending A. tenuis Allergen IgE Pending A. tenuis ASM Class Pending A.fumigatus Allerg IgE Pending A. fumigatus ASM Class Pending C. herbarum Allergn IgE Pending C. herbarum ASM Class Pending D. farinae Allrgen IgE Pending D. farinae ASM Class Pending D. pteronyssinus IgE Pending D. pteronyssinus ASM Cl Pending P. notatum Allerg IgE Pending P, notatum ASM Class Pending [place] IgE Ab Pending [place] ASM Class Pending [place] IgE Ab Pending [place] ASM Class Pending Elm Tree Allergen IgE Pending Elm Tree ASM Class Pending Maple ([place]) IgE Pending Maple Tree ASM Class Pending [place] Tree IgE Ab Pending [place] ASM Class Pending [place] Tree IgE Ab Pending [place] ASM Class Pending [place] Tree Allergen Pending [place] Tree ASM Class Pending [place] Tree IgE Ab Pending [place] ASM Class Pending [place] ASM Clss Pending White [place] Ag IgE Ad Pending Rid[place] IgE Ab Pending Ridgely ASM Class Pending [place] Grass IgE Ab Pending [place] Grass ASM Class Pending [place] Grass IgE Ab Pending [place] Grass ASM Class Pending Common Ragweed IgE Ab Pending Comm Ragweed ASM Class Pending Mugwort ASM Class Pending Mugwort Allergen Pending Rough Pigweed Allrg IgE Pending Rough Pigweed ASM Class Pending Sheep [place] IgE Ab Pending Sheep [place] ASM Class Pending Cat Dander Allergen Pending Cat Dander ASM Class Pending Dog Dander IgE Allergen Pending Dog Dander ASM Class Pending Mouse Urine IgE Ab Pending Mouse Ur Prot ASM Class Pending Cockroach Allergen IgE Pending Cochroach ASM Class Pending IgE Pending Medications Administered Current Inpatient Medications Acetaminophen (Acetaminophen 325 Mg Tab) 650 mg PO Q4H PRN PRN Reason: Pain or Fever Stop: 09/16/25 03:42 Azithromycin (Azithromycin 250 Mg Tab) 250 mg PO HS LELO Stop: 08/22/25 20:59 Last Admin: 08/17/25 20:29 Dose: 250 mg Benzonatate (Benzonatate 100 Mg Capsule) 100 mg PO TID LELO Stop: 09/16/25 08:59 Last Admin: 08/18/25 14:27 Dose: 100 mg Calcium Carbonate (Calcium Carbonate 500 Mg Chewable Tab) 500 mg PO TID PRN PRN Reason: Indigestion Stop: 09/16/25 12:00 Last Admin: 08/17/25 12:44 Dose: 500 mg Enoxaparin Sodium (Enoxaparin Inj 40 Mg/0.4 Ml Syr) 40 mg SQ Q24H LELO Stop: 09/16/25 07:59 Last Admin: 08/18/25 07:53 Dose: Not Given Fluticasone Propionate (Fluticasone Propionate Na Spr 16 Gm Btl) 2 sprays NA DAILY LELO Stop: 09/17/25 13:29 Last Admin: 08/18/25 14:27 Dose: 2 sprays Fluticasone/Vilanterol (Fluticasone/Vilanterol 100/25mcg 14 Puffs/Inhaler) 1 puffs INH DAILY LELO; Protocol Stop: 09/17/25 08:59 Last Admin: 08/18/25 07:57 Dose: 1 puffs Guaifenesin/Dextromethorphan (Guaifenesin/Dextrom Syrup 100mg/10mg 5ml Udc) 5 ml PO Q6H PRN PRN Reason: Cough Stop: 09/16/25 03:42 Last Admin: 08/18/25 07:58 Dose: 5 ml Hydrocodone Bit/Homatropine Methylb (Hydrocodone/Homatropine Syrup 5mg/1.5mg 5ml Udp) 5 ml PO TID PRN PRN Reason: Cough Stop: 09/01/25 08:53 Last Admin: 08/18/25 16:13 Dose: 5 ml Ipratropium [place] (Ipratropium [place] Nasal [place] 0.03% 30 Ml) 2 sprays KRISTIAN BID [facility] Stop: 09/17/25 20:59 Levalbuterol HCl (Levalbuterol 1.25 Mg/3 Ml Neb) 1.25 mg NEB QIDR [facility] Stop: 09/16/25 06:59 Last Admin: 08/18/25 15:56 Dose: 1.25 mg Levalbuterol HCl (Levalbuterol 1.25 Mg/3 Ml Neb) 1.25 mg NEB Q4H PRN PRN Reason: Shortness Of Breath Or Wheezing Stop: 09/16/25 05:40 Polyethylene Glycol (Polyethylene (Miralax) 17 Gm Pack) 17 gm PO DAILY PRN PRN Reason: Constipation Stop: 09/16/25 03:42 Prednisone (Prednisone 20 Mg Tab) 40 mg PO DAILY [facility] Stop: 09/17/25 08:59 Last Admin: 08/18/25 07:58 Dose: 40 mg
--- NOTE | 2025-08-18 13:19 | Pulmonology Progress Note ---
Date of Service August 18, 2025 Assessment & Plan (1) Asthma exacerbation: (2) Tobacco use: (3) Seasonal allergies: (4) Rhinovirus infection: Plan Patient appears to be an asthma exacerbation. No personal history of asthma however. No new exposures, was exposed to his child who had a viral illness recently. No significant eosinophilia on his admission CBC. Has never had PFTs or other investigations performed. Patient has been transition to p.o. prednisone 40 mg. Will continue this. Still wheezing significantly. Continue bronchodilators and ICS. I will obtain an IgE level, will order RAST allergy panel, will get alpha-1 antitrypsin. Will initiate montelukast. Having a lot of congestion, likely related to seasonal allergies and rhinovirus. I will initiate Flonase and ipratropium nasal sprays. Upon discharge the patient will need ICS/LABA according to Lola guidelines. He will need to have his sinus congestion and seasonal allergies well-controlled with antihistamines, montelukast and nasal sprays. He will need to follow-up with pulmonary and have full PFTs performed in the outpatient setting once his acute illness has resolved. Thank you for this consult. I will follow along with you. Admission and Anticipated Discharge Date Admission Date: August 17, 2025 Subjective Patient is slightly improved today. He is on room air. Saturation is about 94%. Still having a lot of coughing and nasal congestion. Still wheezing. Still having a hard time getting a good breath of air. Review of Systems Review of Systems: Negative except as in HPI. Physical Exam Physical Exam: Physical examination: General: Well-appearing, well-nourished and not in acute distress. HEENT: Normocephalic, atraumatic. Extraocular movements intact. Sclera are nonicteric. No JVD appreciated. Sinus congestion. Skin: Warm and dry. No rashes appreciated. No jaundice appreciated. Cardiovascular: Heart is a regular rate and rhythm, no murmurs appreciated on my exam. No significant lower extremity edema. Lungs: On nasal cannula, mildly tachypneic, nonproductive cough, wheezing appreciated. Musculoskeletal: Normal muscle mass and tone. No gross joint deformity abnormalities. No effusions appreciated. Neurologic: Awake and alert, oriented. CN II through XII are grossly intact. Speech is fluent. Nonfocal exam. Psychiatric: Appropriate cooperative during my exam. Results & Data Results & Data Vital Signs (Past 12 Hours) Vital Signs Temp Pulse Pulse Resp BP Pulse Ox Pulse Ox 08/18/25 11:31 108 H 20 93 08/18/25 11:25 36.5 C 103 H 20 133/79 93 08/18/25 08:00 80 08/18/25 08:00 08/18/25 08:00 36.5 C 124 H 20 121/73 90 08/18/25 07:13 101 H 16 94 08/18/25 03:43 94 08/18/25 03:15 36.5 C 93 H 22 119/78 94 O2 Del Method O2 Del Method O2 Flow Rate O2 Flow Rate 08/18/25 11:31 Nasal Cannula 1 08/18/25 11:25 Nasal Cannula 08/18/25 08:00 08/18/25 08:00 Nasal Cannula 2 08/18/25 08:00 Nasal Cannula 08/18/25 07:13 Nasal Cannula 2 08/18/25 03:43 Nasal Cannula 2 08/18/25 03:15 Nasal Cannula 2 PG Care Time/CCT Total # of Minutes Spent Total Time Spent with Patient: Total time spent is greater than 50% in coordination of care (as documented) at patient's floor/unit and/or counseling patient: Coding Level of Care Code 23059 SUB INP/OBS CARE 2/35MIN Diagnoses Asthma exacerbation J45.901 Tobacco use Z72.0 Seasonal allergies J30.2 Rhinovirus infection B34.8
[2025-08-18] MEDS: FLUTICASONE PROPIONATE NA SPR 16 GM BTL SCH (14:27)
[2025-08-18] MEDS: IPRATROPIUM BROMIDE NASAL SPRAY 0.03% 30 ML NAE SCH (20:31)
[2025-08-19 07:27] LABS: Anion Gap 5.0 (3-11); Blood Urea Nitrogen 17.0 mg/dl (6-23); Calcium 9.2 mg/dl (8.6-10.3); Carbon Dioxide 28.0 mmol/L (21-32); Chloride 105.0 mmol/L (98-107); Creatinine Clr Calc Pharmacy 121.6 ml/min; Glucose 101.0 mg/dl (70-99(Fasting)); Magnesium 2.4 mg/dl (1.7-2.4); Potassium 3.5 mmol/L (3.5-5.1); Sodium 138.0 mmol/L (136-145)
--- NOTE | 2025-08-19 07:58 | Pulmonology Progress Note ---
Date of Service August 19, 2025 Assessment & Plan (1) Asthma exacerbation: (2) Tobacco use: (3) Seasonal allergies: (4) Rhinovirus infection: Plan Patient appears to be an asthma exacerbation. No personal history of asthma however. No new exposures, was exposed to his child who had a viral illness recently. No significant eosinophilia on his admission CBC. Has never had PFTs or other investigations performed. Patient has been transition to p.o. prednisone 40 mg. Will continue this. Still wheezing significantly. Continue bronchodilators and ICS. I will obtain an IgE level, will order RAST allergy panel, will get alpha-1 antitrypsin. Will initiate montelukast. Having a lot of congestion, likely related to seasonal allergies and rhinovirus. I will initiate Flonase and ipratropium nasal sprays. Upon discharge the patient will need ICS/LABA according to Lola guidelines. Please start Symbicort 160 with 2 puffs twice daily. Patient was instructed that he can also use this additionally throughout the day as his rescue inhaler for up to 12 puffs a day. He should rinse his mouth after use. He will need to have his sinus congestion and seasonal allergies well-controlled with antihistamines, montelukast and nasal sprays. He will need to follow-up with pulmonary and have full PFTs performed in the outpatient setting once his acute illness has resolved. Should see me in clinic in 2 to 3 weeks. Patient should not smoke or vape when he returns home. Avoid triggers to possible allergens and dust such as home remodeling and working on his new jaison in his house. Thank you for this consult. I will sign off and follow-up in the outpatient setting. Admission and Anticipated Discharge Date Admission Date: August 17, 2025 Subjective Patient is doing little bit better today when I examined him. He is still wheezing but air movement is definitely improved. Still coughing, congestion is slightly improved with nasal sprays. Eager to go home however he does live an hour from this hospital in 30 minutes from the nearest emergency department. Review of Systems Review of Systems: Negative except as in HPI. Physical Exam Physical Exam: Physical examination: General: Well-appearing, well-nourished and not in acute distress. HEENT: Normocephalic, atraumatic. Extraocular movements intact. Sclera are nonicteric. No JVD appreciated. Sinus congestion. Skin: Warm and dry. No rashes appreciated. No jaundice appreciated. Cardiovascular: Heart is a regular rate and rhythm, no murmurs appreciated on my exam. No significant lower extremity edema. Lungs: Wheezing bilaterally, aeration is improved however, nontachypneic, on room air. Musculoskeletal: Normal muscle mass and tone. No gross joint deformity abnormalities. No effusions appreciated. Neurologic: Awake and alert, oriented. CN II through XII are grossly intact. Speech is fluent. Nonfocal exam. Psychiatric: Appropriate cooperative during my exam. Results & Data Results & Data Vital Signs (Past 12 Hours) Vital Signs Temp Pulse Resp BP Pulse Ox Pulse Ox O2 Del Method 08/19/25 07:35 36.6 C 64 18 121/72 96 Room Air 08/19/25 07:09 83 16 94 Room Air 08/19/25 03:09 36.5 C 90 20 124/87 92 Room Air 08/19/25 03:00 93 08/18/25 22:56 36.6 C 96 H 20 116/66 93 Room Air O2 Del Method 08/19/25 07:35 08/19/25 07:09 08/19/25 03:09 08/19/25 03:00 Room Air 08/18/25 22:56 PG Care Time/CCT Total # of Minutes Spent Total Time Spent with Patient: Total time spent is greater than 50% in coordination of care (as documented) at patient's floor/unit and/or counseling patient: Coding Level of Care Code 48720 SUB INP/OBS CARE 2/35MIN Diagnoses Asthma exacerbation J45.901 Tobacco use Z72.0 Seasonal allergies J30.2 Rhinovirus infection B34.8
[2025-08-19 08:02] LABS: Hematocrit (blood only) 39.7 % (42.0-52.0); Hemoglobin 14.4 g/dl (14.0-18.0); Mean Corpuscular Hemoglobin 34.6 pg (25.0-34.0); Mean Corpuscular Volume 95.4 fL (80.0-100.0); Platelet Count 246 K/uL (130-400); RDW Standard Deviation 44.8 fL (36.4-46.3); Red Blood Count 4.16 M/uL (4.70-6.10); White Blood Count 15.32 K/ul (4.8-10.8)
--- NOTE | 2025-08-19 11:01 | Hospitalist Progress Note ---
Date of Service August 19, 2025 Assessment & Plan (1) Asthma exacerbation: Plan: 30-year-old male with ongoing tobacco abuse and no other significant medical history presents with shortness of breath and cough. #Asthma exacerbation -New diagnosis -CXR clear -No O2 requirements today -Still wheezing and has dry cough Plan -Appreciate pulm input -Continue prednisone -Day 3 of azith. can stop after today -Continue nebs prn -ICS/LABA + albuterol HFA upon discharge -IgE, Allergy panel and Alpha 1 AT pending -F/u with pulm as OP -Anticipate DC home tomorrow if wheezing improves DVT prophylaxis - Lovenox Disposition- Telemetry Full code. I spent a total of 42 minutes coordinating, documenting, and providing care for this patient excluding time spent in the performance of separately billed servi shiv. This included personally reviewing all current laboratories and imaging studies, medical reconciliation, outpatient chart review and discussion with specialists Admission and Anticipated Discharge Date Admission Date: August 17, 2025 Subjective Feeling better but still with dry cough and wheezing. Physical Exam Physical Exam: Vitals and labs reviewed General: Well appearing, NAD HEENT: EOMI, PERRLA Neck: Supple Cardiac: RRR no rubs gallops or murmurs Lungs: exp wheezing. no distress otherwise clear Abd: S NT ND BS positive : no dong MSK: Full ROM. No obvious deformities Ext: No Edema cyanosis Skin: Warm, Dry Neuro: AOx3 No focal deficits. Psych: Normal Mood Results & Data Results & Data Vital Signs (Past 12 Hours) Vital Signs Temp Pulse Pulse Resp BP Pulse Ox Pulse Ox 08/19/25 10:10 71 08/19/25 08:00 08/19/25 07:35 36.6 C 64 18 121/72 96 08/19/25 07:09 83 16 94 08/19/25 03:09 36.5 C 90 20 124/87 92 08/19/25 03:00 93 O2 Del Method O2 Del Method 08/19/25 10:10 08/19/25 08:00 Room Air 08/19/25 07:35 Room Air 08/19/25 07:09 Room Air 08/19/25 03:09 Room Air 08/19/25 03:00 Room Air Laboratory Results Abnormal lab results 08/19/25 Range/Units 06:29 WBC 15.32 H D (4.8-10.8) K/ul RBC 4.16 L (4.70-6.10) M/uL Hct 39.7 L (42.0-52.0) % MCH 34.6 H (25.0-34.0) pg MCHC 36.3 H (32.0-36.0) g/dL Glucose 101 H (70-99(Fasting)) mg/dl
[2025-08-20 07:23] VITALS: BP 124/76; TEMP 97.7
[2025-08-20 10:09] VITALS: RESP 16; O2SAT 98
--- NOTE | 2025-08-20 10:13 | Discharge Summary ---
Discharge Summary Date of Service August 20, 2025 Principal Dx & Hospital Course #1 = Principal Diagnosis (1) Asthma exacerbation: 30-year-old male with ongoing tobacco abuse and no other significant medical history presents with shortness of breath and cough. He was diagnosed with asthma exacerbation. No history of asthma. Pulm was consulted. He was started on steroids and nebs. He has not required oxygen. He is feeling much better today and wishes to go home. Pulm cleared for discharge yesterday. He will complete 5 more days of prednisone. He will be started on ICS/LABA and given rx of albuterol HFA and singulair. He will f/u with pulm in a few weeks as OP for PFTs. #Asthma exacerbation -New diagnosis -CXR clear -No O2 requirements today -Still wheezing and has dry cough Plan -Appreciate pulm input -Continue prednisone -Day 3 of azith. can stop after today -Continue nebs prn -ICS/LABA + albuterol HFA upon discharge -IgE, Allergy panel and Alpha 1 AT pending -F/u with pulm as OP DVT prophylaxis - Lovenox Disposition- Telemetry Full code. I spent a total of 46 minutes coordinating, documenting, and providing care for this patient excluding time spent in the performance of separately billed services. This included personally reviewing all current laboratories and imaging studies, medical reconciliation, outpatient chart review and discussion with specialists Notes For Next Care Provider Medication Changes From Visit as above Admission HPI Per Admitting Provider 30-year-old male with ongoing tobacco abuse and no other significant medical history presents with shortness of breath and cough. Patient says since yes terday night coughing a lot and bringing some phlegm and feeling short of breath which prompted him to come to the ER today. He is having some congestion going on for last couple of days. Has some runny nose. Denies any sore throat. Has headache. Congestion in the face. Vision is okay. No earaches. No sore throat. Denies any chest pain. With a lot of coughing had episode of nausea and vomiting. Denies abdominal pain. Normal bowel and bladder movements. Micturating okay. Patient says had similar episode last year but this time it is worse. States smokes 1 pack daily since last 15 years. Says drinks 1 bottle of rum on the weekends and states does not drink on the weekdays. Past medical history. As mentioned above. Past surgical history denies any surgeries. Social history. Smoking 1 pack of cigarettes daily for last 15 years. Drinks 1 bottle of rum on the weekends. No drinking on the weekdays. Denies any drug use. Family history. Denies any family history. Discharge Exam Vitals and labs reviewed General: Well appearing, NAD HEENT: EOMI, PERRLA Neck: Supple Cardiac: RRR no rubs gallops or murmurs Lungs: CTA no rhonchi wheezing or rales Abd: S NT ND BS positive : Deffered MSK: Full ROM. No obvious deformities Ext: No Edema cyanosis Skin: Warm, Dry Neuro: AOx3 No focal deficits. Psych: Normal Mood Updated Medication List Medication Instructions Recorded Confirmed Type albuterol sulfate 90 mcg/actuation 1 inh inhalation Q6H PRN shortness 08/20/25 Rx aerosol inhaler of breath or wheezing #6.7 grams budesonide-formoterol HFA 160 2 inh inhalation BID #10.2 grams 08/20/25 Rx mcg-4.5 mcg/actuation aerosol inhaler (Symbicort) montelukast 10 mg tablet 10 mg PO DAILY #30 tabs 08/20/25 Rx (Singulair) prednisone 20 mg tablet 20 mg PO DAILY 5 days #5 tabs 08/20/25 Rx Hospital Stay Data Consultations 08/17/25 00:47 ED Decision to Admit Stat 08/17/25 08:00 Consult Pulmonology Routine Pending Results Patient Have Any Pending Studies at Discharge: No Discharge Instructions Given to Patient (Per Discharging Provider) Please follow up with Dr Elza Lakhani in 2-3 weeks. Please do not smoke or vape. Total Time Total Time Spent Total Time Spent (In Minutes): 46
[2025-08-20 10:49] VITALS: PULSE 64
[2025-08-24 00:20] LABS: Cockroach IgE Ab 1.51 kU/L; Cottonwood Class 0; Mouse Urine Protein Class 0; Mouse Urine Protein IgE <0.10 kU/L; Mugwort (W6) IgE <0.10 kU/L; Oak-White Class 0; Oak-White IgE <0.10 kU/L; Sycamore Class 0; Sycamore IgE <0.10 kU/L
[2025-08-24 12:29] LABS: Cat rFel d 1 (e94) Ab IgE 0.68 kU/L (<0.10); Cat rFel d 4 (e228) Ab IgE <0.10 kU/L (<0.10); Cat rFel d 7 (e231) Ab IgE 7.22 kU/L (<0.10); Dog rCan f 1 Ab IgE 9.51 kU/L (<0.10); Dog rCan f 2 Ab IgE <0.10 kU/L (<0.10); Dog rCan f 4 Ab IgE 19.0 kU/L (<0.10); Dog rCan f 5 Ab IgE 80.7 kU/L (<0.10); Dog rCan f 6 Ab IgE <0.10 kU/L (<0.10)
== END 2025-08-20 12:09 | disposition home or self-care (01) | DRG 202 ==
LOC: ED 21:02 → 2S 08-17 01:29 → SUATTDRO 08-17 01:29 → 2S 08-17 03:01